=== PATIENT | male | born 1990 | race Caucasian/White ===

== ENCOUNTER 2017-01-29 08:58 | Emergency (ER) | payer OTHER ==
[~2017-01-29] VITALS: Ht 172.7 cm; Wt 91.8 kg
[~2017-01-29 08:58] MED LIST: CLEOCIN HC150 MG/CAP PO; LEVAQUIN 5500 MG/TA1 PO
[2017-01-29] MEDS ORDERED: NORCO 325 MG-51 TAB PO (10:28)
[2017-01-29 11:06] VITALS: BP 124/78; PULSE 90; TEMP 98.6
== END 2017-01-29 11:08 | disposition home or self-care (01) ==
LOC: COL.ER 08:58
DX: S43.402A Unspecified sprain of left shoulder joint, initial encounter (principal); M25.562 Pain in left knee; V86.59XA Driver of other special all-terrain or other off-road motor vehicle injured in nontraffic accident, initial encounter